=== PATIENT | female | born 1955 | race Caucasian/White ===

== ENCOUNTER 2016-12-26 10:55 | Emergency (ER) | payer SELFPAY ==
[~2016-12-26] VITALS: Ht 147.3 cm; Wt 56.7 kg
[2016-12-26 11:10] VITALS: BP 157/74
--- NOTE | 2016-12-26 11:57 | NUR ---
AMBULATED TO ER BED 4
--- NOTE | 2016-12-26 12:07 | NUR ---
Patient being evaluated by physician at bedside.
--- NOTE | 2016-12-26 12:10 | NUR ---
61/F BIB SELF C/O SEVERE PRURITUS WITH RASH THROUGH OUT BODY X 4 DAYS. DENIES HX. DENIES AX. DENIES FEVERS.
--- NOTE | 2016-12-26 12:20 | NUR ---
Patient discharged with v/s stable. Written and verbal after care instructions given and explained. Patient alert, oriented and verbalized understanding of instructions. Ambulatory with steady gait. All questions addressed prior to discharge. ID band removed. Patient advised to follow up with PMD. Rx of ELIMITE AND BENDRYL given. Patient educated on indication of medication including possible reaction and side effects. Opportunity to ask questions provided and answered.
[2016-12-26 12:25] VITALS: BP 155/71
== END 2016-12-26 12:26 | disposition home or self-care (01) ==
LOC: MED 10:55
DX: R23.8 Other skin changes (principal); R03.0 Elevated blood-pressure reading, without diagnosis of hypertension
CPT/HCPCS: 99282